=== PATIENT | female | born 1955 | race Caucasian/White ===

== ENCOUNTER 2017-03-11 14:07 | Inpatient (IN) | payer MEDICAID ==
[~2017-03-11] VITALS: Ht 160 cm; Wt 66.2 kg
[2017-03-11 15:46] LABS: MAGNESIUM - SERUM 1.8 mg/dL (1.8-2.4); VALPROIC ACID (DEPAKOTE) 61.9 ug/mL (50.0-100.0)
--- NOTE | 2017-03-11 18:59 | NUR ---
RECEIVED TO ROOM 2227 VIA STRETCHER FROM ER. RESPONDS TO NAME ONLY. STAGE 3 TO LEFT INNER THIGH, THIS APPEARS TO BE IN THE HEALING PROCESS.
[2017-03-12] VITALS: BP 168/95
[2017-03-12] MEDS ORDERED: CELEXA20 MG PO (00:31)
[2017-03-12] MEDS ORDERED: PROVENTIL HFA6.7 GM INH (00:34)
[2017-03-12] MEDS ORDERED: BUPROPION HCL75 MG PO (00:34)
[2017-03-12] MEDS ORDERED: PRAVACHOL40 MG PO (00:35)
[2017-03-12] MEDS ORDERED: HYDROCODON-ACE1 EAC7 PO (00:36)
[2017-03-12] MEDS ORDERED: MORPHINE SULFAT15 M4 PO (00:39)
[2017-03-12] MEDS ORDERED: NEURONTIN 400400 MG (00:40)
[2017-03-12] MEDS ORDERED: ASPIRIN325 MG PO (00:41)
[2017-03-12] MEDS ORDERED: DEPAKOTE SPRIN125 MG PO (00:43)
[2017-03-12] MEDS ORDERED: HYDRALAZINE HCL50 MG PO (00:45)
[2017-03-12 01:07] VITALS: BP 150/98; BMI 25.9
--- NOTE | 2017-03-12 03:29 | NUR ---
IV CAME OUT, CATHETER INTACT. RESITED TO LEFT FOREARM BY TOÑITO STEVENS.
[2017-03-12 04:30] LABS: BASOPHILS 0.1 % (0-2); EOSINOPHILS 0.4 % (0-7); HEMATOCRIT 37.2 % (36.0-48.0); HEMOGLOBIN 11.8 g/dL (12-16); IMMATURE GRANULOCYTES 0.8 % (0-5); LYMPHOCYTES 18.9 % (15-50); MCH 28.5 pg (26.0-34.0); MCHC 31.7 g/dL (31.0-37.0); MCV 89.9 fL (80.0-100.0); MEAN PLATELET VOLUME 8.3 fL (7.4-10.4); MONOCYTES 9.6 % (2-11); NEUTROPHILS 70.2 % (40-80); PLATELET COUNT 227 10x3/uL (130-400); RBC 4.14 10x6/uL (4.00-5.40); RDW 15.8 % (11.5-14.5); WBC 10.8 10x3/uL (4.8-10.8)
[2017-03-12 04:40] LABS: CALC OSMOLALITY 276 mosm/kg (275-300); CALCIUM 8.8 mg/dL (8.5-10.1); CARBON DIOXIDE 25.9 mmol/L (21.0-32.0); CHLORIDE - SERUM 104 mmol/L (98-107); CREATININE - SERUM 0.6 mg/dL (0.6-1.3); GLUCOSE 102 mg/dL (74-106); POTASSIUM - SERUM 3.4 mmol/L (3.5-5.1); SODIUM 140 mmol/L (136-145); UREA NITROGEN 8 mg/dL (7-18); eGFR NON AFRICAN AMERICAN > 90 mL/min (90-120)
--- NOTE | 2017-03-12 07:30 | NUR ---
AROUSES TO VERBAL STIMLULATION. WILL RESPOND TO YES/NO QUESTIONS APPROPRIATELY. RIGHT SIDED WEAKNESS NOTED. LUNG ARE CLEAR BUT DIMINISHED THROUGHOUT, NO COUGH NOTED. SKIN IS INTACT WITHOUT REDNESS EXCEPT WHAT APPEARS TO BE YEAST TO ELI AREA AND STAGE 3 TO RIGHT INNER THIGH. WOUND CARE NOTIFIED OF WOUNDS. WILL MONITOR. IV TO LEFT FOREARM IS PATENT WITHOUT REDNESS AT INSERTION SITE.
[2017-03-12 08:42] VITALS: BP 137/89
--- NOTE | 2017-03-12 10:40 | NUR ---
C/O GENERALIZED PAIN. REQUESTED AND GIVEN 2 HYDROCODONE PO FOR SAME. ALSO GIVEN AM MEDS IN APPLESAUCE. NO DIFFICULTY NOTED WITH SWALLOW.
--- NOTE | 2017-03-12 12:00 | NUR ---
REPOSITIONED TO LEFT SIDE FOR COMFORT. DR. HERNANDEZ HERE.
[2017-03-12 12:52] VITALS: BP 126/84
[2017-03-12 13:51] VITALS: Ht 160 cm; Wt 66.2 kg
--- NOTE | 2017-03-12 14:30 | NUR ---
PURNIMA WITH WOUND CARE HERE. NEW ORDERS RECEIVED FOR WOUND CARE.
[2017-03-12 16:45] VITALS: BP 110/56; BP 132/91
--- NOTE | 2017-03-12 16:45 | NUR ---
REPOSITIONED AT THIS TIME. NO NEEDS EXPRESSED.
--- NOTE | 2017-03-12 18:41 | NUR ---
INCONTINENT OF URINE AND SMALL STOOL. SKIN CARE PER STAFF. LINENS CHANGED. NO CHANGES NOTED. NO NEEDS NOTED.
[2017-03-12 20:00] VITALS: BP 130/83
--- NOTE | 2017-03-12 20:00 | NUR ---
ASSESSMENT PER FLOW SHEET.PT WITHOUT DISTRESS.DOOR OPEN TO MONITOR.CALL LIGHT IN REACH
--- NOTE | 2017-03-12 23:55 | NUR ---
RESTING WITHOUT DISTRESS.DOOR OPEN TO MONITOR.REMAINS WITHOUT SEIZURE ACTIVITY.DOOR OPEN
[2017-03-13] VITALS: BP 122/80
--- NOTE | 2017-03-13 02:54 | NUR ---
RESTING ON RIGHT SIDE,WITHOUT DISTRESS.CALL LIGHT IN REACH
[2017-03-13 04:00] VITALS: BP 133/80
[2017-03-13 04:51] LABS: BASOPHILS 0.1 % (0-2); HEMATOCRIT 33.6 % (36.0-48.0); HEMOGLOBIN 10.5 g/dL (12-16); IMMATURE GRANULOCYTES 0.7 % (0-5); LYMPHOCYTES 33.1 % (15-50); MCH 28.5 pg (26.0-34.0); MCHC 31.3 g/dL (31.0-37.0); MCV 91.1 fL (80.0-100.0); MEAN PLATELET VOLUME 8.6 fL (7.4-10.4); MONOCYTES 9.9 % (2-11); NEUTROPHILS 55.2 % (40-80); PLATELET COUNT 191 10x3/uL (130-400); RBC 3.69 10x6/uL (4.00-5.40); WBC 8.7 10x3/uL (4.8-10.8)
--- NOTE | 2017-03-13 05:10 | NUR ---
REMAINS WITHOUT NEEDS,WITHOUT CHANGE FROM INITIAL SHIFT ASSESSMENT.CONT PLAN OF CARE
[2017-03-13 06:26] LABS: CALC OSMOLALITY 277 mosm/kg (275-300); CALCIUM 8.3 mg/dL (8.5-10.1); CARBON DIOXIDE 24.7 mmol/L (21.0-32.0); CHLORIDE - SERUM 108 mmol/L (98-107); CREATININE - SERUM 0.7 mg/dL (0.6-1.3); GLUCOSE 93 mg/dL (74-106); POTASSIUM - SERUM 3.4 mmol/L (3.5-5.1); SODIUM 140 mmol/L (136-145); UREA NITROGEN 9 mg/dL (7-18); VALPROIC ACID (DEPAKOTE) 62.8 ug/mL (50.0-100.0); eGFR NON AFRICAN AMERICAN > 90 mL/min (90-120)
[2017-03-13 08:35] VITALS: BP 151/86
--- NOTE | 2017-03-13 08:50 | NUR ---
CALLED THE [facility]. SPOKE WITH NURSE DEREJE. SHE SAID HER DIET ORDER IS A REGULAR DIET. SHE ALSO SAID SHE HAS A SIGNED DNR, AND SHE WILL FAX IT.
--- NOTE | 2017-03-13 10:32 | NUR ---
PULLED PATIENT UP IN THE BED USING PINK BED WITH 2 PERSON ASSIST. SAT PATIENT UP AT A 90 DEGREE ANGLE. EXPLAINED TO PATIENT THAT IT IS TIME FOR MEDICATIONS. TOLD PATIENT EVERY MEDICATION I HAD AND ITS PURPOSE. PATIENT SHOOK HER HEAD YES. ASKED PATIENT IF SHE LIKES VANILLA PUDDING PATIENT SHOOK HER HEAD YES. ASKED PATIENT IF SHE WANTS A DRINK OF ICE WATER BEFORE WE GET STARTED PATIENT SHOOK HER HEAD NO. OPENED THE DEPAKOTE CAPULES, SPRINKED THEM IN A SMALL AMOUNT OF VANNILA PUDDING, BROUGHT IT TO PATIENT, TOLD HER IT IS HER SIEZURE MEDICATION. PATIENT SHOOK HER HEAD NO. EXPLAINED TO PATIENT IT IS IMPORTANT TO TAKE YOUR SEIZURE MEDICATION TO PREVENT SEIZURES, PATIENT SHOOK HER HEAD YES AND OPENED HER MOUTH. PUT THE SPOON IN PATIENTS MOUTH WITH THE PUDDING ON IT. PATIENT HELD THE PUDDING IN HER MOUTH. ENCOURAGED PATIENT MULTIPLE TIMES TO SWALLOW. PATIENT DID NOT SWALLOW, SHE HELD HER HEAD TO THE RIGHT SIDE AND THE PUDDING STARTED DRIPPING OUT OF HER MOUTH. WIPED PATIENT'S MOUTH. ASKED PATIENT IF SHE WANTS A DRINK OF ICE WATER TO HELP GET IT DOWN, PATIENT SHOOK HER HEAD NO. ASKED HER IF SHE WANTS A DRINK OF SPRITE, PATIENT NODDED YES. PUT THE STRAW IN HER MOUTH FOR THE SPRITE, PATIENT DID NOT PUT HER MOUTH AROUND IT TO INITIATE SUCKING THROUGH THE STRAW, ENCOURAGED HER TO. SHE STILL JUST HELD HER MOUTH OPEN AND PUDDING DRIPPING OUT. WIPED OFF HER MOUTH AND SUCTIONED THE PUDDING OUT.
[2017-03-13 12:01] VITALS: BP 155/81
[2017-03-13 16:13] VITALS: BP 184/104
--- NOTE | 2017-03-13 17:35 | NUR ---
PATIENT HAD INCONTINENT VOID. WITH ASSISTANCE FROM SUPERVISOR FISH PROCESSING, CLEANED PATIENT UP AND CHANGED LINENS.
[2017-03-13 19:00] VITALS: BP 168/96
--- NOTE | 2017-03-13 19:53 | NUR ---
PATIENT SLEEPING, HOB ELEVATED 20 DEGREES, x3 PADDED BED RAILS UP, NO SCD, LEVOFOLAXIN INFUING AT 100, KCl RIDER INFUSING AT 50, 2.5LPM 02 VIA RI.
--- NOTE | 2017-03-13 20:00 | NUR ---
LYING IN BED,WITHOUT DISTRESS.DOOR OPEN TO MONITOR
[2017-03-14] VITALS: BP 173/95
[2017-03-14 04:00] VITALS: BP 178/97
[2017-03-14 05:01] LABS: BASOPHILS 0.1 % (0-2); EOSINOPHILS 0.7 % (0-7); HEMATOCRIT 37.9 % (36.0-48.0); HEMOGLOBIN 11.8 g/dL (12-16); IMMATURE GRANULOCYTES 0.4 % (0-5); LYMPHOCYTES 28.8 % (15-50); MCH 28.4 pg (26.0-34.0); MCHC 31.1 g/dL (31.0-37.0); MCV 91.3 fL (80.0-100.0); MEAN PLATELET VOLUME 9.1 fL (7.4-10.4); MONOCYTES 10.2 % (2-11); NEUTROPHILS 59.8 % (40-80); RBC 4.15 10x6/uL (4.00-5.40); RDW 15.8 % (11.5-14.5)
[2017-03-14 05:03] LABS: PLATELET COUNT 146 10x3/uL (130-400)
[2017-03-14 05:20] LABS: CALCIUM 8.8 mg/dL (8.5-10.1); CARBON DIOXIDE 28.5 mmol/L (21.0-32.0); CHLORIDE - SERUM 108 mmol/L (98-107); CREATININE - SERUM 0.7 mg/dL (0.6-1.3); GLUCOSE 98 mg/dL (74-106); MAGNESIUM - SERUM 1.3 mg/dL (1.8-2.4); PHOSPHOROUS 3.8 mg/dL (2.5-4.9); SODIUM 143 mmol/L (136-145); eGFR NON AFRICAN AMERICAN > 90 mL/min (90-120)
[2017-03-14 05:22] LABS: CALC OSMOLALITY 281 mosm/kg (275-300); POTASSIUM - SERUM 4.1 mmol/L (3.5-5.1); UREA NITROGEN 4 mg/dL (7-18)
--- NOTE | 2017-03-14 08:00 | NUR ---
PATIENT HAD INCONTINENT VOID. CLEANED UP PATIENT WITH ASSISTANCE FROM ANOTHER NURSE. CHANGED LINENS. APPLIED BARRIER SPRAY TO SKIN. PULLED PATIENT UP IN BED USING PAD. ORAL CARE COMPLETED AT THIS TIME. SUCTIONED AFTER ORAL CARE. PATIENT TOLERATED WELL AND COOPERATED. NO SIGNS OF DISTRESS NOTED. BED IN LOWEST POSITION, CALL LIGHT IN REACH. BED RAILS UP X'S 2.
[2017-03-14 08:14] VITALS: BP 162/99
--- NOTE | 2017-03-14 10:50 | NUR ---
CRUSHED PATIENT'S MEDICATIONS, PUT THEM IN APPLE SAUCE. PATIENT REFUSED TO TAKE MEDICATION. SPOKE WITH PATIENT ABOUT THE IMPORTANCE OF TAKING MEDICATIONS. PATIENT STILL SHOOK HER HEAD NO. AT THE BEDSIDE. HE TALKED TO PATIENT ABOUT TAKING HER MEDICATION. PATIENT STILL REFUSED. AWARE. ASKED PATIENT IF SHE WANTS A SPRITE, PATIENT SHOOK HER HEAD YES. MIXED A SPRITE WITH HONEY THICKENER. TOLD PATIENT IT IS THICKENED SPRITE. PATIENT REFUSED TO DRINK IT. EXPLAINED TO PATIENT WHY SHE IS ON THICKENDED LIQUIDS. PATIENT STILL REFUSED TO DRINK IT.
[2017-03-14 13:10] VITALS: BP 169/85
[2017-03-14 19:16] VITALS: BP 166/93
[2017-03-14 20:00] VITALS: BP 170/101
--- NOTE | 2017-03-14 23:02 | NUR ---
LYING IN BED,RESTING WITHOUT SIGNS OF DISTRESS.DOOR OPEN
[2017-03-15] VITALS (8 sets, daily range): BP systolic 148–201; BP diastolic 80–108
[2017-03-15 05:50] LABS: BASOPHILS 0.1 % (0-2); EOSINOPHILS 0.6 % (0-7); HEMATOCRIT 38.2 % (36.0-48.0); HEMOGLOBIN 12.1 g/dL (12-16); IMMATURE GRANULOCYTES 0.4 % (0-5); LYMPHOCYTES 25.7 % (15-50); MCH 28.8 pg (26.0-34.0); MCHC 31.7 g/dL (31.0-37.0); MEAN PLATELET VOLUME 9.1 fL (7.4-10.4); MONOCYTES 8.3 % (2-11); NEUTROPHILS 64.9 % (40-80); RDW 15.7 % (11.5-14.5); WBC 8.5 10x3/uL (4.8-10.8)
[2017-03-15 05:54] LABS: PLATELET COUNT 237 10x3/uL (130-400)
[2017-03-15 06:05] LABS: CALC OSMOLALITY 279 mosm/kg (275-300); CALCIUM 9.2 mg/dL (8.5-10.1); CARBON DIOXIDE 26.4 mmol/L (21.0-32.0); CHLORIDE - SERUM 106 mmol/L (98-107); CREATININE - SERUM 0.7 mg/dL (0.6-1.3); GLUCOSE 104 mg/dL (74-106); SODIUM 142 mmol/L (136-145); UREA NITROGEN 3 mg/dL (7-18); eGFR NON AFRICAN AMERICAN > 90 mL/min (90-120)
[2017-03-15 06:14] LABS: MAGNESIUM - SERUM 1.7 mg/dL (1.8-2.4); POTASSIUM - SERUM 3.4 mmol/L (3.5-5.1)
--- NOTE | 2017-03-15 11:35 | NUR ---
PATIENT IS VERY LETHARGIC. LIPS AND LEFT ARM TREMORING. PATIENT EYES ARE INTERMITTENTLY LOOKING TO THE LEFT SIDE AND UP, AND NOT MOVING TO LOOK AT ME WHEN I SAY HER NAME, TOUCH HER OR ASK HER TO LOOK AT ME. PATIENTS PUPILS SPONTANEOUSLY MOVE BACK TO CENTER, TRIED TO GET PATIENT TO LOOK AT ME, FOLLOW ME WITH HER EYES, PATIENT'S EYES NOT FOLLOWING. ASKED PATIENT YES AND NO QUESTIONS, PATIENT IS NOT NODDING OR RESPONDING VERBALLY. IS IN ROOM. NOTIFIED HIM OF ALL THE ABOVE. HE ASSESSED HER.
--- NOTE | 2017-03-15 12:21 | NUR ---
NO KEPPRA PREMIX ON UNIT. CALLED PHARMACY, SPOKE WITH
--- NOTE | 2017-03-15 13:00 | NUR ---
SPOKE WITH HE SAID HE SPOKE WITH MERARY, THE PATIENT'S SISTER AND SHE SAID THE PATIENT'S WISHES ARE TO NOT HAVE A FEEDING TUBE OR ANYTHING LIKE THAT. HE SAID WE WILL PLAN TO DISCHARGE HER BACK TO THE [facility] FOR HOSPICE CARE PROBABLY TOMORROW. TALKED TO MERARY ON THE PHONE. SHE SAID SHE IS ON THE OTHER LINE WITH THE [facility] TRYING TO GET IT SET UP WHERE THE PATIENT WILL CONTINUE TO SEE EVEN WHILE HOSPICE.
--- NOTE | 2017-03-15 14:12 | NUR ---
PATIENT HAD INCONTINENT VOID. CLEANED HER UP WITH ASSIST FROM FIELD TRAINER. PATIENT MOANED WE TURNED HER AND SAID "OUCH" WHEN HER RIGHT FOOT WAS BEING PUT IN THE FOAM BOOT. PATIENT IS STILL VERY LETHARGIC BUT RESPONDING TO TOUCH.
--- NOTE | 2017-03-15 15:06 | NUR ---
The patient was admitted to [facility] from [facility]. She was admitted on 02/19/17 to [facility]. Her sister, Barbara Webber, is the contact listed from facility. DR Hardy reportedly spoke with the sister this am regarding pt's prognosis and status. The decision was made to discharge patient back to [facility] and hospice care will be arranged. The sister reportedly spoke with [facility] & [facility] this early afternoon. She selected [facility] as DR Hardy is the veterinary medical officer and she would like for the patient to be seen by her own PCP. The patient has been with DR Hardy for a number of years. The plan is for discharge back to [facility] w/ [facility] providing Hospice care 03/16/17. The sister, Ms Webber, will be available tomorrow to sign the paperwork. The referral packet was hand delivered to [facility]/ [facility]. The patient will be transported by ambulance. CM to follow to assist w/ discharge planning.
--- NOTE | 2017-03-15 19:15 | NUR ---
RECIEVED SHIFT REPORT. PT IS LYING IN BED. PT IS LETHARGIC AND ONLY AROUSING TO STIMULI AT THIS TIME. IV IS PATENT AND FLUIDS ARE RUNNING PER ORDER. PT REQUIRES ASSISTANCE TURNING IN BED FOR COMFORT AND SKIN CARE. NO SIGNS OF PAIN AT THIS TIME PER YULISSA YAN. WILL CONTINUE TO MONITOR. SIDE RAILS ARE UP X 3 AND PADDED FOR SEIZURE PRECAUTION. BED IS IN LOWEST POSITION. CALL LIGHT IS IN HAND.
--- NOTE | 2017-03-15 20:04 | NUR ---
SHIFT ASSESSMENT COMPLETED. PT STATUS REMAINS UNCHANGED FROM PREVIOUS. SCHEDULED VASOTEC HELD AT THIS TIME DUE TO LATE ADIMINSTRATION OF LOPRESSOR. WILL MONITOR. SIDE RAILS X 3 AND PADDED. BED LOW. CALL LIGHT IN HAND.
[2017-03-16 04:00] VITALS: BP 162/93
--- NOTE | 2017-03-16 07:10 | NUR ---
REPORT RECEIVED FROM DIRECTOR STARS NURSE. CALL LIGHT IN REACH.
--- NOTE | 2017-03-16 08:10 | NUR ---
ASSESSMENT COMPLETED. NEURO CHECK COMPLETED. DISPOSABLE BED ALARM ON. CALL LIGHT IN REACH. WILL CONTINUE WITH PLAN OF CARE.
[2017-03-16] MEDS ORDERED: CATAPRES-T1 PATCH.WK TRANSDERM (08:21)
[2017-03-16] MEDS ORDERED: SILVADENE20 GM TOPICAL (08:23)
[2017-03-16] MEDS ORDERED: MORPHINE S20 MG/5 ML PO (08:24)
[2017-03-16] MEDS ORDERED: ATIVAN2 MG/ML IM (08:26)
[2017-03-16 08:54] VITALS: BP 156/92
--- NOTE | 2017-03-16 09:30 | NUR ---
D/C REASSESSMENT NOTE: PATIENT IS DISCHARGING TO [facility] BY AMBULANCE TO BE ADMITTED TO [facility] WHEN SHE ARRIVES. KURT HAS BEEN IN TOUCH WITH PATIENTS SISTER AND SHE HAS BEEN NOTIFIED OF DISCHARGE TODAY PER TAD (LIASON).
--- NOTE | 2017-03-16 10:05 | NUR ---
AM MEDS ADMINISTERED. VASOTEC IVP PER TOÑITO OLVERA. IV TO LEFT FOREARM DC'D WITH TIP INTACT.
--- NOTE | 2017-03-16 10:15 | NUR ---
SCHEDULED MEDICATION GIVEN AT THIS TIME PER ORDER FOR BLOOD PRESSURE. PT ASLEEP IN BED WITH NO VISABLE SIGNS OF PAIN OR DISCOMFORT. BED IN LOW POSITION AND CALL LIGHT WITHIN REACH. WILL CONTINUE TO MONITOR.
--- NOTE | 2017-03-16 11:09 | NUR ---
REPORT CALLED TO APRIL TAPIA, AT [facility].
--- NOTE | 2017-03-16 11:10 | NUR ---
DC'D TO AMBULANCE VIA STRETCHER WITH EMT.
== END 2017-03-16 11:10 | disposition home health service (06) | DRG 56 ==
LOC: D.ER 14:07 → D.MS 17:17
PROVIDERS: Emergency Medicine; ADMIT Family Medicine
DX: I69.398 Other sequelae of cerebral infarction (principal); J18.9 Pneumonia, unspecified organism; L89.893 Pressure ulcer of other site, stage 3; I69.320 Aphasia following cerebral infarction; R56.9 Unspecified convulsions; Z66 Do not resuscitate; R13.12 Dysphagia, oropharyngeal phase; F17.200 Nicotine dependence, unspecified, uncomplicated; I10 Essential (primary) hypertension; E78.5 Hyperlipidemia, unspecified; I69.319 Unspecified symptoms and signs involving cognitive functions following cerebral infarction; K21.9 Gastro-esophageal reflux disease without esophagitis; E55.9 Vitamin D deficiency, unspecified; E53.8 Deficiency of other specified B group vitamins; J45.909 Unspecified asthma, uncomplicated; G89.29 Other chronic pain; Z74.09 Other reduced mobility; K59.00 Constipation, unspecified